=== PATIENT | female | born 1985 | race Hispanic/Latino ===

== ENCOUNTER 2023-02-08 12:46 | Day surgery (SDC) | payer OTHER ==
[2023-02-08 13:19] VITALS: BMI 27.3
[2023-02-08] MEDS ORDERED: hydrALAZINE 20 MG/ML VIAL SLOW IVP PRN (13:32)
[2023-02-08] MEDS ORDERED: Lactated Ringer's 1,000 ML IV SCH (13:45)
[2023-02-08] MEDS ORDERED: Ondansetron PF 4 MG/2 ML Vial IVP SCH (14:00)
[2023-02-08] MEDS ORDERED: Dextrose 5%-Lactated Ringers 1,000 ML IV SCH (18:15)
[2023-02-08] MEDS ORDERED: Dicyclomine 20 MG/2 ML VIAL IM SCH (18:45)
== END 2023-02-08 20:25 | disposition home or self-care (01) ==
LOC: CSHLD/OP 12:46
PROVIDERS: ATTEND Obstetrics & Gynecology
DX: O99.891 Other specified diseases and conditions complicating pregnancy (principal); R19.7 Diarrhea, unspecified; A08.4 Viral intestinal infection, unspecified; O21.9 Vomiting of pregnancy, unspecified; O24.419 Gestational diabetes mellitus in pregnancy, unspecified control; O34.211 Maternal care for low transverse scar from previous cesarean delivery; Z90.49 Acquired absence of other specified parts of digestive tract; Z88.6 Allergy status to analgesic agent; Z87.59 Personal history of other complications of pregnancy, childbirth and the puerperium; Z79.899 Other long term (current) drug therapy; Z3A.22 22 weeks gestation of pregnancy
CPT/HCPCS: 96360; 96361; 96372; 96374; 99282; J2405